=== PATIENT | female | born 1975 | race Caucasian/White ===

== ENCOUNTER 2024-01-15 08:21 | Emergency (ER) | payer BC ==
[~2024-01-15] VITALS: Ht 162.6 cm; Wt 66.2 kg
[2024-01-15 08:38] VITALS: BP 150/84; PULSE 89; TEMP 98.2; O2SAT 99
[2024-01-15] MEDS: ketorolac tromethamine 15mg/ml inj. IM ONE (11:33)
[2024-01-15] MEDS: LIDOcaine 1% 30ml preserv. free vial IJ STA (11:34)
[2024-01-15] MEDS: triamcinolone acetonide 40mg/ml inj IJ ONE (11:35)
[2024-01-15] MEDS ORDERED: CYCL-1 PO (11:59)
[2024-01-15 12:13] VITALS: RESP 16
== END 2024-01-15 12:22 | disposition home or self-care (01) ==
LOC: ER 08:22
DX: S16.1XXA Strain of muscle, fascia and tendon at neck level, initial encounter (principal); Z79.899 Other long term (current) drug therapy; X58.XXXA Exposure to other specified factors, initial encounter; Y93.89 Activity, other specified; Y92.89 Other specified places as the place of occurrence of the external cause; Y99.8 Other external cause status
CPT/HCPCS: 20552; 96372; 99284; J1885; J3301; J3490; 20610; 99283; A6449